=== PATIENT | male | born 1960 | race Caucasian/White ===

== ENCOUNTER 2020-10-11 20:55 | Inpatient (IN) | payer OTHER, SELFPAY ==
[2020-10-11 23:41] VITALS: BMI 25.1
[2020-10-11] MEDS ORDERED: Ondansetron ODT 4 MG TAB PO PRN (23:55)
[2020-10-11] MEDS ORDERED: Dextrose 50% Abboject 50 ML SYRINGE SLOW IVP PRN (23:55)
[2020-10-11] MEDS ORDERED: Ondansetron PF 4 MG/2 ML Vial IVP PRN (23:55)
[2020-10-11] MEDS ORDERED: Dextrose 5% in Water 1,000 ML IV PRN (23:55)
[2020-10-12] MEDS ORDERED: Ketorolac Tromethamine 30 MG/ML VIAL IVP SCH (00:30)
[2020-10-12] MEDS: Sodium Chloride 0.9% 1,000 ML IV SCH ×2 (00:35→08:52)
[2020-10-12] MEDS: Cyclobenzaprine 10 MG TAB PO PRN ×2 (00:37→23:11)
[2020-10-12] MEDS: traMADol HCl 50 MG TAB PO PRN ×4 (01:04→23:13)
[2020-10-12] MEDS: Acetaminophen 500 MG TAB PO PRN ×4 (01:06→23:11)
--- NOTE | 2020-10-12 01:14 | HP ---
ATTENDING SURGEON: Dr. Izaguirre. CONSULTATIONS: Orthopedics, Dr. Montiel. HISTORY OF PRESENT ILLNESS: The patient is a 60-year-old man, who was on top of an 18-garcia trailer when he was unable to see where he was stepping due to a bright light causing him to fall from the trailer landed on both heels. The patient had immediate pain, was brought to the emergency department in [place] where he underwent evaluation and examination, was noted to have bilateral nondisplaced calcaneal fractures. At which time, he was transported to our facility for admission and orthopedic consultation. The patient denied any loss of consciousness. He has no pain in the knees, hips, pelvis, spine. Again, he had no loss of consciousness. His only complaint is heel pain. ALLERGIES: PERCOCET. THE PATIENT REPORTS THAT IT MADE HIM VERY FLUSHED. CURRENT MEDICATIONS: None. PAST MEDICAL HISTORY: Hepatitis C, which the patient reports he underwent "the treatment for." PAST SURGICAL HISTORY: None. SOCIAL HISTORY: The patient denies tobacco, alcohol, or drugs. 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 REVIEW OF SYSTEMS: A 10-point review of systems is negative except otherwise stated. PHYSICAL EXAMINATION: VITAL SIGNS: Temperature is 98.0, heart rate 57, blood pressure 145/93, respirations 16, oxygen saturation 98% on room air. GENERAL: The patient is resting comfortably in bed. He is awake, alert, and oriented. [place] Coma Scale is 15. HEENT: Head is normocephalic and atraumatic. Eyes, extraocular motion intact. PERRLA bilaterally. Ears are atraumatic without discharge. Nose is atraumatic without discharge. Oropharynx is clear. NECK: Nontender. Trachea is midline with no JVD. CHEST: Clear to auscultation with good inspiratory and expiratory effort. HEART: Regular rate and rhythm. ABDOMEN: Soft, flat, nontender with active bowel sounds. EXTREMITIES: Neurovascularly intact x4. Bilateral lower extremities are immobilized in short posterior splints. The patient has good capillary refill and sensation distally in his lower extremities. BACK: Atraumatic and nontender. There are no laboratory findings. RADIOGRAPHS: Views of the right ankle show a calcaneus fracture. Views of the left ankle again demonstrated calcaneal fracture. ASSESSMENT: 1. Status post fall from approximately 15 feet. 2. Bilateral calcaneal fractures. 3. Acute pain secondary to above. 4. History of hepatitis C. PLAN: Plan will be to admit the patient to the surgical floor. He will have CT scans of his bilateral lower extremities in the morning. We will keep him n.p.o. New pain control, pulmonary toilet, gastritis, mechanical, VTE prophylaxis. The evaluation, examination, laboratory, and radiographic findings were discussed with the attending after this dictation. Job ID: [id number]
[2020-10-12] MEDS ORDERED: Morphine 2 MG/ML VIAL SLOW IVP SCH (02:00)
[2020-10-12] MEDS: Ibuprofen 600 MG TAB PO PRN (05:04)
[2020-10-12] MEDS: traMADol HCl 50 MG TAB PO SCH ×4 (05:05→23:12)
[2020-10-12 06:05] LABS: #Eosinphils 0.2 thou/uL (0.0-0.7); #Lymphocytes 2.3 thou/uL (1.20-3.40); #Monocytes 0.8 thou/uL (0.11-0.59); #Neutrophils 6.5 thou/uL (1.40-6.50); %Basophils 0.3 % (0.0-1.0); %Eosinophils 1.5 % (0.0-10.0); %Lymphocytes 23.4 % (21.0-51.0); %Neutrophils 66.7 % (42.0-75.0); Hemoglobin 13.5 g/dL (14.0-18.0); Mean Corpuscular HGB CONC 33.3 g/dL (32.0-36.0); Mean Corpuscular Hemoglobin 29.5 pg (27.0-31.0); Mean Corpuscular Volume 88.4 fL (78.0-98.0); Mean Platelet Volume 8.6 fL (7.4-10.4); Platelet Count 158 thou/uL (130-400); RBC Distribution Width 11.9 % (11.5-14.5); Red Blood Cell (RBC) Count 4.57 mill/uL (4.70-6.10); White Blood Cell (WBC) Count 9.8 thou/uL (4.8-10.8)
[2020-10-12 06:37] LABS: Anion Gap 10 mmol/L (10-20); BUN (Urea Nitrogen) 16 mg/dL (8.4-25.7); Calc. Creatinine Clearance 90 mL/min (70-130); Calcium 8.5 mg/dL (7.8-10.44); Carbon Dioxide 26 mmol/L (23-31); Chloride 106 mmol/L (98-107); Glucose 108 mg/dL (80-115); Potassium 3.8 mmol/L (3.5-5.1); Sodium 138 mmol/L (136-145)
[2020-10-12] MEDS: Famotidine 20 MG TAB PO SCH ×2 (08:53→21:21)
[2020-10-12] MEDS ORDERED: FLU VACC QS2020-21(6MOS UP)/PF 60 MCG/0.5 ML SYRINGE IM ONE (09:00)
--- NOTE | 2020-10-12 11:07 | CT ---
CT LEFT ANKLE PERFORMED WITHOUT CONTRAST ENHANCEMENT: Date: 10/11/2020 HISTORY: Preop for calcaneal fracture. FINDINGS: The ankle joint is normal in appearance. There is a complex, comminuted, interarticular fracture of t he calcaneus. Interarticular component of the fracture shows one of the fracture lines extending thro ugh the medial facet as an essentially nondisplaced fracture. A second better-defined fracture line i s through the central portion of the posterior articular facet, although there is an additional commi nuted element. This would be best classified as a Weeks type 3BC. Fracture line extends in addition to interarticular portion in an oblique fashion to involve the superior articular surface of the pos terior tuberosity region. There is also a more axially oriented component to this fracture which exte nds in an axial plane beneath the posterior subtalar joint to extend into the more anterior aspect of the calcaneus and even a nondisplaced fracture line in the region of the anterior process. IMPRESSION: Extensively comminuted interarticular fracture of the calcaneus as described above. The interarticula r component of this would best be classified as a Weeks type 3BC. There are additional fracture com ponents as discussed above. POS: JERO
--- NOTE | 2020-10-12 11:16 | CT ---
CT RIGHT ANKLE PERFORMED WITHOUT CONTRAST ENHANCEMENT: Date: 10/11/2020 HISTORY: Preop for calcaneal fracture. FINDINGS: There is an interarticular fracture of the calcaneus. This fracture is complex. Interarticular compon ent has a fracture line involving the more lateral portion of the posterior articular facet and a sec ond fracture line which extends through the medial portion of the posterior articular facet in the re gion of the neck of the sustentaculum hiwot. The extraarticular component of this fracture is better c lassified as a type C fracture. Fracture of the posterior tuberosity. There is an axially oriented co mponent which extends to the level of the Achilles tendon insertion. There is a fracture line that al so involves the plantar surface of the calcaneus. There is an incomplete fracture of the anterior pro cess of the calcaneus. Fracture line does extend to involve the calcaneal cuboid joint. IMPRESSION: Complex comminuted fracture with interarticular and extraarticular components. Interarticular portion would best be classified as a Weeks type 3AC. Additional extraarticular components of the fracture are as described above. POS: JERO
[2020-10-12 11:55] LABS: SARS-CoV-2 PCR by NAA Not Detected (NotDetected)
--- NOTE | 2020-10-12 18:32 | CON ---
DATE OF CONSULTATION: 10/12/2020 REQUESTING A PHYSICIAN: Arian Silverman DO CONSULTING PHYSICIAN: Long Montiel MD REASON FOR CONSULTATION: Bilateral calcaneal fractures. BRIEF CLINICAL HISTORY: Luis is a 60-year-old male, who was injured while working yesterday evening. He stepped off truck, which was a fall of about 16 feet, landing on both heels. He had immediate pain. He was taken to the emergency room in [place], where he was placed in splints and transported to our facility for evaluation by the Trauma Team. He has been admitted under their care and we have been consulted for evaluation of bilateral calcaneal fracture. PAST MEDICAL HISTORY: Hepatitis C. PAST SURGICAL HISTORY: Negative. MEDICATIONS: None. ALLERGIES: NO KNOWN DRUG ALLERGIES. DENIES ANY CONTACT ALLERGIES. 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 He denies any ethanol, tobacco, or illicit drug abuse. PHYSICAL EXAMINATION: Visual inspection of both feet demonstrates splints to be intact. They are both removed to be rewrapped in place in better position. His neurovascular status is good bilaterally. He has a little more swelling on the left side with some fracture blisters noted on the medial retromalleolar region. Ankle swelling is impressive on the left compared to the right. IMAGING STUDIES: Three views of right ankle demonstrates comminuted and slightly angulated but still without any varus deviation or valgus deviation calcaneal fracture. Left ankle demonstrates similar findings with a comminuted calcaneus fracture. IMPRESSION: 1. Bilateral calcaneal fractures. 2. Fall, greater than 10 feet. PLAN: 1. The patient will have both splints from the referring facility will be removed and he will be placed in a well-padded posterior short-leg splint on both ankles. 2. He may be discharged from orthopedic standpoint, but followup in clinic in 10 to [address] examination is obtained and findings are discussed with the patient as he prefers nonoperative management. This will be the method of treatment. Job ID: [id number]
[2020-10-12] MEDS: Senokot S 8.6-50 MG TAB PO SCH (21:21)
[2020-10-12] MEDS: Enoxaparin Sodium 40 MG/0.4 ML SYRINGE SC SCH (21:21)
[2020-10-13] MEDS: traMADol HCl 50 MG TAB PO SCH ×4 (05:28→23:51)
[2020-10-13] MEDS: Ibuprofen 600 MG TAB PO PRN (05:29)
--- NOTE | 2020-10-13 05:29 | PRG ---
DATE OF SERVICE: 10/12/2020 SUBJECTIVE: The patient is a 60-year-old male, who presented to the ER after a fall with bilateral calcaneal fractures. Overall, the patient reports he experienced significant pain last night at the beginning of the night; however, pain was relatively well controlled at the time of our exam. Orthopedics had seen the patient and told him that they were waiting on his scans to determine if they would do surgery or not. Otherwise, the patient had no acute concerns. OBJECTIVE: VITAL SIGNS: Temperature 98.3, pulse 63, respiratory rate 16, O2 saturation 94% on room air, blood pressure 134/83. GENERAL: A 60-year-old male, who appears stated age, lying in bed, in no acute distress. HEENT: Normocephalic, atraumatic. RESPIRATORY: Equal chest rise and fall. No acute respiratory distress. MUSCULOSKELETAL: Moves upper extremities appropriately. Bilateral lower extremities in splints. NEUROLOGIC: A and O x3. No focal deficits. PSYCHIATRIC: Mood and affect congruent and appropriate. LABORATORY DATA: CBC significant for hemoglobin 13.5, hematocrit 40.4. BMP is unremarkable. ASSESSMENT: 1. Status post fall from approximately 15 feet. 2. Bilateral calcaneal fractures. 3. Acute pain secondary to above. 4. History of hepatitis C. PLAN: The patient had CT scans this morning that were not read at time of exam. We will discuss with Orthopedics their plan regarding surgery versus nonoperative management. Pending their recommendations, we will plan for either operation or nonoperative management with therapy likely either way at discharge. The patient was seen by Dr. Silverman, who agrees with the assessment and plan. Job ID: [id number]
--- NOTE | 2020-10-13 06:55 | OP ---
DATE OF PROCEDURE: 10/12/2020 PREPROCEDURE DIAGNOSIS: Right calcaneus fracture. POSTPROCEDURE DIAGNOSIS: Right calcaneus fracture. PROCEDURE PERFORMED: Placement of posterior short-leg splint. ANESTHESIA: None required. INDICATION FOR PROCEDURE: Right comminuted calcaneus fracture without significant displacement. PROCEDURE IN DETAIL: The patient was positioned appropriately. The right lower extremity was then elevated to operating height. A stockinette was placed. This was overwrapped with Webril and a #4 fiberglass splint was wet and placed behind the leg, wrapped, overwrapped with a 4-inch Frank and a 6-inch Frank. It was held in a position to mold. All corners were checked and felt to be clear. The procedure was terminated without any complication. Job ID: [id number]
--- NOTE | 2020-10-13 06:57 | OP ---
DATE OF PROCEDURE: 10/12/2020 PREPROCEDURE DIAGNOSIS: Left calcaneus fracture. POSTOPERATIVE DIAGNOSIS: Left calcaneus fracture. PROCEDURE PERFORMED: Placement of left posterior splint. ANESTHESIA: None. PROCEDURE IN DETAIL: The patient was positioned in the supine position. The left leg was then lifted and elevated and a stockinette was placed. This was overwrapped with Webril. A posterior fiberglass splint was then placed and overwrapped with a 4-inch Frank and a 6-inch Frank, allowed to cure. The procedure was terminated without any complications. Job ID: [id number]
[2020-10-13] MEDS: Polyethylene Glycol 3350 17 GM Packet PO SCH (09:28)
[2020-10-13] MEDS: Ibuprofen 600 MG TAB PO SCH ×2 (09:29→18:52)
[2020-10-13] MEDS: Famotidine 20 MG TAB PO SCH ×2 (09:29→20:16)
[2020-10-13] MEDS: Senokot S 8.6-50 MG TAB PO SCH ×2 (09:29→20:18)
[2020-10-13] MEDS: Cyclobenzaprine 10 MG TAB PO PRN ×2 (11:12→23:51)
--- NOTE | 2020-10-13 15:08 | RAD ---
LUMBAR SPINE 3 VIEWS: Date: 10/13/2020 HISTORY: Fall with back pain. FINDINGS: Lumbar vertebra maintain height and alignment. No evidence of acute compression fracture or deformity . Mild loss of disc space at L5-S1. Slight anterolisthesis at L5-S1. Mild degenerative spurring. Face t hypertrophy. IMPRESSION: Degenerative changes of the lumbar spine. No compression or acute fracture identified. POS: AGW
[2020-10-13] MEDS: Gabapentin 300 MG CAP PO SCH ×2 (15:19→20:16)
--- NOTE | 2020-10-13 16:03 | PDOC.GSPN ---
Surgery Progress Note: Subj - Subjective Narrative: 60 y/o male bilateral calcaneal fracture, evaluated and splinted by orthopedic team 2/4. No surgical intervention needed. The patient is recovering well, pain controlled and working with PT. Wheel chair at bedside. Surgery Progress Note: Obj - Vital signs Vital signs: Vital Signs - Most Recent Temp Pulse Resp BP Pulse Ox 98.3 F 66 16 132/87 95 10/13/20 15:43 10/13/20 15:43 10/13/20 15:43 10/13/20 15:43 10/13/20 15:43 - Physical Exam General: no distress, well developed, well nourished ENT: no congestion, no hearing loss Cardiovascular: regular rate and rhythm Abdomen: soft, non tender Wound: dressing clean,dry,intact, healing well Surgery Progress Note: Results - Labs Result Diagrams: 10/12/20 05:45 10/12/20 05:45 Surgery Progress Note: A/P - Problem (1) Calcaneal fracture Current Visit: Yes Code(s): S92.009A - UNSP FRACTURE OF UNSP CALCANEUS, INIT FOR CLOS FX Status: Acute Qualifiers: Fracture type: closed Fracture alignment: nondisplaced Laterality: left Assessment and Plan: 60 y/o bilat calcaneal fracture 2/5 Lumbar x-ray r/o fracture- no fracture present. Rest of care per orthopedic team Follow up 10-12 days at ortho clinic Pain control Continue PT/OT DVT prophylaxis mechanical Patient is uninsured dispo pending swing bed or home with home health aid. F/u with social work. (2) Calcaneal fracture Current Visit: Yes Code(s): S92.009A - UNSP FRACTURE OF UNSP CALCANEUS, INIT FOR CLOS FX Status: Acute Qualifiers: Encounter type: initial encounter Fracture type: closed Fracture alignment: nondisplaced Laterality: right
[2020-10-13] MEDS: Enoxaparin Sodium 40 MG/0.4 ML SYRINGE SC SCH (20:29)
[2020-10-13] MEDS ORDERED: Aspirin 81 mg Enteric Coated Tablet PO SCH (21:00)
[2020-10-14] MEDS: Ibuprofen 600 MG TAB PO SCH ×3 (01:39→17:07)
[2020-10-14] MEDS: traMADol HCl 50 MG TAB PO SCH ×4 (05:35→23:27)
[2020-10-14] MEDS: Acetaminophen 500 MG TAB PO PRN (05:37)
[2020-10-14] MEDS: Gabapentin 300 MG CAP PO SCH ×3 (08:26→20:26)
[2020-10-14] MEDS: Famotidine 20 MG TAB PO SCH ×2 (08:28→20:26)
[2020-10-14] MEDS: Polyethylene Glycol 3350 17 GM Packet PO SCH (08:28)
[2020-10-14] MEDS: Senokot S 8.6-50 MG TAB PO SCH ×2 (08:28→20:26)
--- NOTE | 2020-10-14 13:43 | PRG ---
DATE OF SERVICE: 10/14/2020 SUBJECTIVE: The patient remains on the surgical floor. He is hospital day 3, status post fall from an 18 garcia, in which he sustained nondisplaced bilateral calcaneal fractures. Unfortunately, he is nonweightbearing on both lower extremities and he is from [place]. He is waiting for placement with friends until he can get back to [place]. The patient's friends are making arrangements for him to return. Currently, we will ask Case Management to assist in any wheelchair or any other devices that are needed to discharge him home. His pain is being controlled. He is tolerating a diet and is medically stable for discharge. OBJECTIVE: VITAL SIGNS: Temperature is 97.9, heart rate 64, blood pressure 146/92, respirations 20, oxygen saturation 98% on room air. GENERAL: The patient is resting comfortably in bed. He is awake, alert, conversant, appropriate. [place] Coma Scale is 15. HEENT: Unremarkable. LUNGS: Respirations are nonlabored with equal rise and fall of the chest. ABDOMEN: Flat, nondistended. EXTREMITIES: Bilateral lower extremities neurovascularly intact with well-padded splints in place. LABS AND IMAGING: There are no labs or radiographs reviewed this morning. ASSESSMENT: 1. Status post fall from approximately 12 feet. 2. Bilateral nondisplaced calcaneal fractures, treated nonoperatively. PLAN: Will be to continue supportive care and await safe discharge. Job ID: [id number]
[2020-10-14] MEDS: Enoxaparin Sodium 40 MG/0.4 ML SYRINGE SC SCH (20:25)
[2020-10-14] MEDS: Cyclobenzaprine 10 MG TAB PO PRN (23:32)
[2020-10-15] MEDS: Ibuprofen 600 MG TAB PO SCH ×2 (01:50→09:10)
[2020-10-15] MEDS: traMADol HCl 50 MG TAB PO SCH (05:59)
[2020-10-15 07:39] VITALS: BP 152/95; TEMP 97.7
[2020-10-15] MEDS: Gabapentin 300 MG CAP PO SCH (09:03)
[2020-10-15] MEDS: Famotidine 20 MG TAB PO SCH (09:03)
[2020-10-15] MEDS: Polyethylene Glycol 3350 17 GM Packet PO SCH (09:04)
[2020-10-15] MEDS: Senokot S 8.6-50 MG TAB PO SCH (09:04)
[2020-10-15] MEDS ORDERED: Aspirin 81 mg Enteric Coated Tablet PO SCH (21:00)
== END 2020-10-15 11:56 | disposition home or self-care (01) | DRG 563 ==
LOC: SJJU 20:55
PROVIDERS: ADMIT Surgery; ATTEND Surgery
PROC: 2W3SX1Z Immobilization of Right Foot using Splint (ICD-10-PCS; principal; 2020-10-12)
PROC: 2W3TX1Z Immobilization of Left Foot using Splint (ICD-10-PCS; 2020-10-12)
DX: S92.065A Nondisplaced intraarticular fracture of left calcaneus, initial encounter for closed fracture (principal); S92.064A Nondisplaced intraarticular fracture of right calcaneus, initial encounter for closed fracture; W17.89XA Other fall from one level to another, initial encounter; B18.2 Chronic viral hepatitis C; Z20.822 Contact with and (suspected) exposure to COVID-19; Z23 Encounter for immunization
CPT/HCPCS: 36415; 72100; 80048; 85025; 87635; 90471; 90662; G0008; J1650; J1885; J2270; U0003; U0005